=== PATIENT | male | born 1970 | race Caucasian/White ===

== ENCOUNTER 2017-01-21 06:35 | Emergency (ER) | payer MEDICAID ==
[~2017-01-21] VITALS: Ht 182.9 cm; Wt 86.4 kg
[2017-01-21] MEDS ORDERED: AMPICILLIN SODIUM/SULBACTAM NA 3 GM in SODIUM CHLORIDE 0.9% 100 ML IV ONE (07:30)
[2017-01-21] MEDS ORDERED: KETOROLAC TROMETHAMINE 30 MG/ML VIAL IVP ONE (07:30)
[2017-01-21 08:11] VITALS: BP 129/81
== END 2017-01-21 08:27 | disposition home or self-care (01) ==
LOC: EMS 06:36
DX: K04.7 Periapical abscess without sinus (principal)
CPT/HCPCS: 96365; 96375; 99284; J0295; J1885; J7050; 99285

== ENCOUNTER 2018-02-08 23:09 | Emergency (ER) | payer MEDICAID, OTHER ==
[~2018-02-08] VITALS: Ht 185.4 cm; Wt 109.5 kg
[2018-02-09 00:58] VITALS: BP 138/79
== END 2018-02-09 01:00 | disposition home or self-care (01) ==
LOC: EMS 23:10
DX: L89.891 Pressure ulcer of other site, stage 1 (principal); F17.210 Nicotine dependence, cigarettes, uncomplicated
CPT/HCPCS: 99283

== ENCOUNTER 2018-03-04 02:25 | Emergency (ER) | payer OTHER ==
[~2018-03-04] VITALS: Ht 182.9 cm; Wt 82.7 kg
[2018-03-04 05:11] VITALS: BP 130/60
[2018-03-04] MEDS ORDERED: IBUPROFEN 600 MG TABLET PO ONE (05:15)
[2018-03-04] MEDS ORDERED: CEPHALEXIN MONOHYDRATE 500 MG CAPSULE PO ONE (05:15)
== END 2018-03-04 05:26 | disposition home or self-care (01) ==
LOC: EMS 02:26
DX: K04.7 Periapical abscess without sinus (principal); F17.210 Nicotine dependence, cigarettes, uncomplicated; F15.90 Other stimulant use, unspecified, uncomplicated
CPT/HCPCS: 99283